=== PATIENT | female | born 1990 | race Two or more races ===

== ENCOUNTER 2021-06-01 04:43 | Emergency (ER) | payer OTHER ==
[~2021-06-01] VITALS: Ht 172.7 cm; Wt 72.7 kg
[2021-06-01 05:37] VITALS: BP 134/89
[2021-06-01] MEDS ORDERED: PERTUSS(ACELL),DIPH,TET VAC/PF 0.5 ML SYRINGE IM. ONE (06:15)
[2021-06-01] MEDS ORDERED: BUPIVACAINE HCL/PF 0.25% 10 ML VIAL SQ ONE (06:15)
== END 2021-06-01 10:43 | disposition home or self-care (01) ==
LOC: EMS 04:44
DX: S41.011A Laceration without foreign body of right shoulder, initial encounter (principal); S31.811A Laceration without foreign body of right buttock, initial encounter; W22.8XXA Striking against or struck by other objects, initial encounter; Y93.89 Activity, other specified; Y92.89 Other specified places as the place of occurrence of the external cause; Y99.8 Other external cause status
CPT/HCPCS: 12005; 90471; 90715; 99283; J3490